=== PATIENT | male | born 1955 | race Caucasian/White ===

== ENCOUNTER 2020-07-04 14:53 | Emergency (ER) | payer BC, OTHER ==
[2020-07-04 15:10] VITALS: TEMP 98.4
--- NOTE | 2020-07-04 16:45 | CT ---
EXAM DESCRIPTION: Chest w/o Contrast (accession [id number]), Abdomen/Pelvis w/wo Contrast (accession [id number]), Chest w/Contrast (accession [id number]) CLINICAL HISTORY: 65 years, Male, EPIGASTRIC PAIN, RADIATES TO CHEST, BACK COMPARISON: None TECHNIQUE: Thin-section noncontrast axial CT images are obtained according to our protocol. Reconstructed MPR images are created and reviewed as well. FINDINGS: CT chest without IV contrast The lungs appear clear. No consolidating infiltrate. Normal thyroid gland. No lower cervical or axillary or mediastinal adenopathy. Heart size is prominent. No pericardial effusion. Coronary calcification is minimal. No hilar mass or mediastinal adenopathy. Coronal and sagittal reformatted images confirm the findings. Degenerative changes in the T-spine. Sternum appears intact. No aortic aneurysm. CT chest with contrast Lung window images are negative for infiltrate. No pneumothorax or pleural effusion. Normal pulmonary vascularity. Mediastinal window images show normal enhancement of the aortic arch and pulmonary arteries. No mediastinal mass or adenopathy. Normal thyroid gland. Normal enhancement of cardiac chambers. Heart is prominent or mildly enlarged. CT abdomen without and with contrast The lung bases are clear of infiltrate. Liver is normal in size and parenchymal appearance. Punctate 1 mm calcification in the mid left kidney could be a small stone without obstruction. High density in the lower pole the left kidney consistent with a tiny hemorrhagic cyst 4 mm. Previous study October 04, 2015 showed no hemorrhagic cyst but there was a tiny 1 mm calculus in the left kidney. There was left hydronephrosis with stones in the left ureter. Following the left ureter distally on the present study, no stones are seen. The stone seen on the previous study have apparently passed in the interval small cyst in the posterior medial mid right kidney 9 mm with a density of 4 Hounsfield units. No stones are seen in the right kidney. No right hydronephrosis or ureteral calculus.. Spleen, pancreas, and kidneys are otherwise unremarkable. Question minimal debris in the dependent portion of gallbladder (small partially calcified stones) and sono may be helpful for further evaluation. There is no lymphadenopathy, inflammation, or free fluid observed. Duodenal diverticulum in the region of head of the pancreas. Postcontrast CT images of the upper abdomen show normal enhancement of liver, spleen, pancreas, kidneys and upper abdominal vessels. Small cyst in the anterior inferior right kidney is apparent on the postcontrast images measuring 8 mm. No aortic aneurysm. Tiny posterior right renal lesion (axial image 30, series 5) measures 3 mm but this was high density on the previous study as well consistent with small hemorrhagic cyst rather than a solid mass. CT pelvis without and with contrast No inflammation is seen around the cecum or terminal ileum or sigmoid colon. Appendix is normal in appearance. No stones are seen in the distal ureters or bladder. Normal pelvic small bowel loops. No fracture or lytic lesion of the osseous structures. Postcontrast images show normal enhancement of the pelvic vessels. Prostate is enlarged with coarse internal calcifications. Transverse diameter equals 4.7 cm with prominent invagination of the bladder base. No bladder wall thickening of significance. Small appendix or appendiceal stump without surrounding inflammation. No inflammation around the terminal ileum or cecum or sigmoid colon. Postcontrast images show normal enhancement of the pelvic vessels. Inhomogeneous enhancement of the prostate suggesting hypertrophy of the transition zone. Prominent seminal vesicles appear symmetrical. Coronal and sagittal reformatted images confirm the findings. On the coronal images, slight prominence of the intrarenal collecting system on the left is noted with slightly delayed left nephrogram compared to the right. Prominent caliber of the proximal and mid left ureter compared to the right side. No ureteral stone is seen on the present study and no obstructing mass is evident. It may be that the patient has recently passed a stone on the left. IMPRESSION: No acute process is identified in the chest. Slightly prominent urinary collecting system on the left with slightly delayed nephrogram may indicate recent passage of a stone. See above. Nonobstructing left renal calculus 1 mm. Small bilateral renal lesions consistent with cysts. No acute process in the pelvis. This exam was performed according to our departmental dose-optimization program, which includes automated exposure control, adjustment of the mA and/or kV according to patient size and/or use of iterative reconstruction technique. Electronically signed by: Jamie Loja MD 07/04/2020 4:43 PM [facility]
--- NOTE | 2020-07-04 17:02 | ED.PDOC ---
History of Present Illness - General Chief Complaint: Chest Pain/NM Stated Complaint: chest pain Time Seen by Provider: 07/04/20 15:06 - History of Present Illness Initial Comments: PAIN IN THE EPIGASTRIC AREA RADIATING INTO THE CHEST. ASSOCIATED WITH PERIORAL NUMBNESS AND HYPERVENTILATION. Timing/Duration: other - 0 TODAY Severity/Quality: severe Chest Pain Radiation: epigastric Activities at Onset: rest Prior Chest Pain/Cardiac Workup: no prior chest pain, no prior cardiac workup Improving Factors: nothing Worsening Factors: nothing Allergies/Adverse Reactions: Allergies NO KNOWN ALLERGY Allergy (Unverified 07/04/20 15:10) Home Medications: Ambulatory Orders Esomeprazole Magnesium [Nexium] 40 mg PO DAILY 10/31/14 Omeprazole 40 mg PO DAILY #14 cap 07/04/20 Review of Systems - Review of Systems Constitutional: States: no symptoms reported EENTM: States: no symptoms reported Respiratory: States: see HPI Cardiology: States: see HPI Gastrointestinal/Abdominal: States: no symptoms reported Genitourinary: States: no symptoms reported Musculoskeletal: States: no symptoms reported Skin: States: no symptoms reported Neurological: States: no symptoms reported Past Medical History (General) - Patient Medical History Hx Seizures: No Hx Stroke: No Hx Dementia: No Hx Asthma: No Hx of COPD: No Hx Cardiac Disorders: No Hx Congestive Heart Failure: No Hx Pacemaker: No Hx Hypertension: No Hx Thyroid Disease: No Hx Diabetes: No Hx Gastroesophageal Reflux: Yes - takes nexium Hx Renal Disease: No Hx Cancer: No Hx of HIV: No Hx Hepatitis C: No Hx MRSA: No - Vaccination History Hx Tetanus, Diphtheria Vaccination: No Hx Influenza Vaccination: No Hx Pneumococcal Vaccination: No Immunizations Up to Date: No - Social History Hx Tobacco Use: No Hx Alcohol Use: Yes - socially Hx Substance Use: No Hx Substance Use Treatment: No Hx Depression: No Family Medical History - Family History Mother Family History: No Known Physical Exam - Physical Exam General Appearance: Alert, Anxious, Well Developed, Well Groomed, Well Hydrated, Well Nourished Eyes, Ears, Nose, Throat Exam: PERRL/EOMI, normal ENT inspection, TMs normal, pharynx normal Neck: non-tender, full range of motion, supple, normal inspection Respiratory: chest non-tender, lungs clear, normal breath sounds, no respiratory distress Cardiovascular/Chest: normal peripheral pulses, regular rate, rhythm, no edema, no gallop, no JVD, no murmur Gastrointestinal/Abdominal: normal bowel sounds, non tender, soft, no organomegaly Extremity: normal range of motion, non-tender, normal inspection, no pedal edema, no calf tenderness Neurologic: allergy specialist II-XII nml as tested, no motor/sensory deficits, alert, normal mood/affect, oriented x 3 Skin Exam: normal color, warm/dry Lymphatic: no adenopathy Departure - Departure Clinical Impression: Atypical chest pain Time of Disposition: 17:55 Disposition: Discharge to Home or Self Care Condition: Fair Departure Forms: ED Discharge - Pt. Copy, Patient Portal Self Enrollment Instructions: DI for Chest Pain Diet: full liquid diet Referrals: Dc Victoria MD [Referring] - 1-2 Weeks Prescriptions: Omeprazole 40 mg PO DAILY #14 cap Home Medications: Ambulatory Orders Esomeprazole Magnesium [Nexium] 40 mg PO DAILY 10/31/14 Omeprazole 40 mg PO DAILY #14 cap 07/04/20
[2020-07-04] MEDS: ALUM & MAG HYDROX-SIMETHICONE 30 ML, LIDOCAINE VISCOUS 2% 15 ML PO ONE ×2 (18:03)
[2020-07-04 18:16] VITALS: BP 131/68; O2SAT 99
== END 2020-07-04 18:25 | disposition home or self-care (01) ==
LOC: ER 14:53
DX: R07.89 Other chest pain (principal); R10.13 Epigastric pain; R20.0 Anesthesia of skin; R06.4 Hyperventilation; K21.9 Gastro-esophageal reflux disease without esophagitis; Z79.899 Other long term (current) drug therapy